=== PATIENT | female | born 1940 | race Caucasian/White ===

== ENCOUNTER 2020-04-27 07:41 | Outpatient (CLI) | payer MEDICARE, BC, OTHER ==
[2020-04-27 15:05] LABS: Hemoglobin 10.6 g/dL (12.0-16.0); Mean Corpuscular HGB CONC 27.6 g/dL (32.0-36.0); Mean Corpuscular Hemoglobin 26.2 pg (27.0-31.0); Mean Corpuscular Volume 95.1 fL (78.0-98.0); Mean Platelet Volume 8.2 fL (7.4-10.4); Platelet Count 370 thou/uL (130-400); RBC Distribution Width 12.6 % (11.5-14.5); Red Blood Cell (RBC) Count 4.03 mill/uL (4.20-5.40); White Blood Cell (WBC) Count 3.9 thou/uL (4.8-10.8)
[2020-04-27 15:25] LABS: Anion Gap 11 mmol/L (10-20); BUN (Urea Nitrogen) 14 mg/dL (9.8-20.1); Calc. Creatinine Clearance 0 mL/min (70-130); Calcium 9.1 mg/dL (7.8-10.44); Carbon Dioxide 28 mmol/L (23-31); Chloride 103 mmol/L (98-107); Estimated GFR-MDRD 74; Glucose 103 mg/dL (83-110); Sodium 138 mmol/L (136-145)
--- NOTE | 2020-04-27 18:17 | EKG ---
Test Reason : PREOP Blood Pressure : / mmHG Vent. Rate : 071 BPM Atrial Rate : 071 BPM P-R Int : 154 ms QRS Dur : 080 ms QT Int : 414 ms P-R-T Axes : 051 073 041 degrees QTc Int : 449 ms Sinus rhythm with occasional Premature ventricular complexes Nonspecific ST and T wave abnormality Inferior ST elevation cannot r/o acute [place] changes Abnormal ECG Confirmed by DR. Stephen MUSA ([id number]) on 04/27/2020 6:16:54 PM Referred By: CL Confirmed By:DR. Stephen MUSA
[2020-04-28 18:30] LABS: SARS-CoV-2 MS2 Positive; SARS-CoV-2 N Gene Negative; SARS-CoV-2 S Gene Negative; SARS-CoV-2 by NAA Not Detected (NotDetected); SARS-CoV-2 orf1ab Negative
== END 2020-04-27 07:42 | disposition home or self-care (01) ==
LOC: LABBT 07:41
PROVIDERS: ATTEND Urology
DX: Z01.818 Encounter for other preprocedural examination (principal); N20.0 Calculus of kidney; Z20.828 Contact with and (suspected) exposure to other viral communicable diseases
CPT/HCPCS: 80048; 85027; 93005; U0003; 87635; 93010

== ENCOUNTER 2020-05-02 09:04 | Day surgery (SDC) | payer MEDICARE, BC ==
[2020-04-27 11:22] VITALS: BMI 25.7
[2020-05-02] MEDS ORDERED: Iothalamate Meglumine 60% 50 ML VIAL FS ONE (09:19)
[2020-05-02] MEDS ORDERED: Levofloxacin 500 mg/D5W 100 ml Premix Bag ONE (09:43)
[2020-05-02] MEDS ORDERED: Fentanyl 100 MCG/2 ML VIAL ONE (12:01)
[2020-05-02] MEDS ORDERED: Lidocaine 1% PF 5 ML VIAL ONE (12:27)
[2020-05-02] MEDS ORDERED: Ondansetron PF 4 MG/2 ML Vial ONE (12:27)
[2020-05-02] MEDS ORDERED: PROPOFOL 200 MG/20 ML VIAL ONE (12:27)
[2020-05-02] MEDS ORDERED: Dexamethasone 20 MG/5 ML VIAL ONE (12:27)
[2020-05-02] MEDS ORDERED: PHENYLEPHRINE-NS 100 MCG/ML 10 ML SYRINGE ONE (12:27)
[2020-05-02] MEDS ORDERED: Oxybutynin 5 MG TAB ONE (13:22)
[2020-05-02] MEDS ORDERED: Ketorolac Tromethamine 30 MG/ML VIAL ONE (13:22)
[2020-05-02] MEDS ORDERED: Phenazopyridine HCl 100 MG TAB ONE (13:22)
--- NOTE | 2020-05-02 13:59 | RAD ---
EXAM: Retrograde IVP HISTORY: Ureteral stent for hydronephrosis COMPARISON: None FINDINGS/IMPRESSION: Limited intraoperative fluoroscopic views of the retrograde IVP were submitted f or interpretation. There is a right-sided ureteral stent which appears in good position. No significant hydronephrosis is seen. There are 2 radiodensities adjacent to the midportion of the sten t which could represent calcifications or contrast adjacent to the stent. No obvious filling defects are seen.
--- NOTE | 2020-05-02 18:19 | OP ---
DATE OF PROCEDURE: 05/02/2020 PREOPERATIVE DIAGNOSIS: Right renal stone. POSTOPERATIVE DIAGNOSIS: Right renal stone. PROCEDURES PERFORMED: Right ureteroscopy, laser lithotripsy, basket extraction of stone, retrograde pyelogram, intraoperative interpretation of radiologic imaging, 6 x 24 double-J ureteral stent placement. ANESTHESIA: General. COMPLICATIONS: None. ESTIMATED BLOOD LOSS: Minimal. SPECIMEN: Right stone fragments. DESCRIPTION OF PROCEDURE: After informed consent, the patient was taken to the operating room, transferred to the table on her own power. Anesthesia was established. A time-out was performed, ensuring the correct patient, site, and procedure. Preoperative antibiotics were administered. She was prepped and draped in the lithotomy position. I began by inserting the rigid cystoscope through the urethra into the bladder. The right ureteral stent was grasped and brought out through the urethral meatus. A wire was passed through this into the renal pelvis, noting an obvious calcification at the renal pelvis. An access sheath was then passed over the wire under fluoroscopic guidance into the proximal ureter and then a retrograde pyelogram performed through this, showing good filling of the renal pelvis. The flexible ureteroscope was then guided through the access sheath into the renal pelvis, where the stone was quickly encountered. The stone was treated using dusting setting to trim the stone into several small fragments. These fragments were removed with a 1.9 cm Nitinol basket. The renal pelvis was then systematically examined, noting no clinically significant stone fragments remaining. The scope was then withdrawn after filling the renal pelvis with contrast and a wire passed through the access sheath before removing the sheath. A 6 x 24 double-J ureteral stent was positioned over the wire with a curl in the kidney and curl in the bladder under fluoroscopic guidance. The patient was then awoken from anesthesia, transferred back to her hospital bed, and taken to PACU stable condition, where she will discharge home upon recovery, and we will remove her stent in 5 days. Job ID: [id number]
== END 2020-05-02 14:40 | disposition home or self-care (01) ==
LOC: SDC 09:04
PROVIDERS: ATTEND Urology
PROC: 0TC38ZZ Extirpation of Matter from Right Kidney Pelvis, Via Natural or Artificial Opening Endoscopic (ICD-10-PCS; principal; 2020-05-02)
PROC: 0T768DZ Dilation of Right Ureter with Intraluminal Device, Via Natural or Artificial Opening Endoscopic (ICD-10-PCS; 2020-05-02)
DX: N20.0 Calculus of kidney (principal); N30.00 Acute cystitis without hematuria; R30.0 Dysuria; J30.2 Other seasonal allergic rhinitis; Z79.82 Long term (current) use of aspirin; Z79.899 Other long term (current) drug therapy
CPT/HCPCS: 74420; 82365; 88300; J1100; J1885; J1956; J2405; J2704; J3010